=== PATIENT | female | born 1965 | race African-American/Black ===

== ENCOUNTER 2016-06-29 16:19 | Emergency (ER) | payer OTHER ==
[~2016-06-29] VITALS: Ht 154.9 cm; Wt 87.1 kg
[~2016-06-29 16:19] MED LIST: HYDR-971 PO; IBUP-1060 PO; METH4TAB2 PO
--- NOTE | 2016-06-29 17:34 | RAD ---
Three-view right hand study History: Jammed hand in a door. Pain in third digit. Findings: No acute fracture or dislocation or osteolytic process is seen. Degenerative spurring of the third DIP joint is seen. 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 IMPRESSION: No acute fracture.
[2016-06-29 18:09] VITALS: BP 152/109
[2016-06-29] MEDS ORDERED: ACET-704 PO (18:25)
--- NOTE | 2016-06-29 18:25 | PHYS DOC ---
Past Medical History Past Medical History: GERD, Hypertension Past Surgical History: Tubal ligation Alcohol Use: Rarely Drug Use: Marijuana Adult General Chief Complaint Chief Complaint: HAND PROBLEM HPI HPI Patient is a 50 year old female with history of hypertension and acid reflux who presents with right middle finger pain after her middle finger was jammed in between 2 chairs. Review of Systems Review of Systems Constitutional: Denies fever or chills [] Musculoskeletal: Right middle finger pain Integument: Denies rash or skin lesions [] Neurologic: Denies headache, focal weakness or sensory changes [] Endocrine: Denies polyuria or polydipsia [] Current Medications Current Medications Current Medications Medications (Trade) Dose Ordered Sig/Laura Start Time Stop Time Status Last Admin Dose Admin Acetaminophen/ Hydrocodone Bitart (Lortab 5/325) 1 tab 1X ONCE 06/29/16 18:30 06/29/16 18:31 UNV Diphtheria/ Tetanus/Acell Pertussis (Boostrix) 0.5 ml ONCE ONCE 06/29/16 18:30 06/29/16 18:31 UNV Allergies Allergies Allergies Coded Allergies Type Severity Reaction Last Updated Verified No Known Drug Allergies 08/30/15 No Physical Exam Physical Exam Constitutional: Well developed, well nourished, no acute distress, non-toxic appearance. [] Skin: Warm, dry, no erythema, no rash. [] Back: No tenderness, no CVA tenderness. [] Extremities: Right middle finger with bruising noted on the distal end of the finger dorsal aspect, tenderness on palpation of the right middle finger distal end. Limited range of motion to the right middle finger due to pain. Adequate flexion and extension of the right middle finger at the MIP PIP and DIP joints. Adequate ulnar, medial, radial sensation to the right fingers. +2 right radial pulse. Cap refill less than 2 seconds the right upper extremity. Neurologic: Alert and oriented X 3, normal motor function, normal sensory function, no focal deficits noted. [] Psychologic: Affect normal, judgement normal, mood normal. [] Current Patient Data Vital Signs Vital Signs Date Time Temp Pulse Resp B/P Pulse Ox O2 Delivery O2 Flow Rate FiO2 06/29/16 18:09 98.4 72 18 100 Room Air 98.4 EKG EKG [] Radiology/Procedures Radiology/Procedures [] Course & Med Decision Making Course & Med Decision Making Pertinent Labs and Imaging studies reviewed. (See chart for details) Patient is in the ED with right middle finger contusion after it was caught in between 2 chairs. Right hand x-ray interpreted by radiologist as negative for any acute findings. Right middle finger was placed in a finger splint by the Ed RN. Neurovascular exam done by me is normal. Cap refill less than 2 seconds. Ice elevation encouraged. Discharged with Tylenol 3. Follow-up with Ortho in one week. Dragon Disclaimer Dragon Disclaimer This electronic medical record was generated, in whole or in part, using a voice recognition dictation system. Departure Departure Impression: Primary Impression: Contusion of finger, right Disposition: HOME, SELF-CARE Condition: STABLE Referrals: TARAH PALENCIA MD (PCP) WINDY SILVA MD see him in one week if pain continues Patient Instructions: Contusion Additional Instructions: You were seen for right middle finger contusion. Your x-rays are normal. Ice and elevate the extremity. You can apply Neosporin to the bruised laceration area. Keep it clean and dry. Wear the splint as needed. Follow-up with the provided orthopedic doctor or your own doctor in a week if pain continues. Scripts Acetaminophen With Codeine (Tylenol With Codeine #3 Tablet)1 Each Tablet1 Tab PO PRN Q4HRS PRN PAIN #20 TAB Prov:SUDHIR HURTADO APRN 06/29/16 Problem Qualifiers Primary Impression: Contusion of finger, right Encounter type: initial encounter Finger: middle finger Damage to nail status: without damage Qualified Code: S60.031A - Contusion of right middle finger without damage to nail, initial encounter SUDHIR HURTADO APRN Jun 29, 2016 18:25
[2016-06-29] MEDS ORDERED: DIPHTH,PERTUSS(ACELL),TET TOX 0.5 ML DISP.SYRIN. VAX IM ONE (18:30)
[2016-06-29] MEDS ORDERED: HYDROCODONE/APAP 5/325MG TABLET. PO ONE (18:30)
== END 2016-06-29 18:48 | disposition home or self-care (01) ==
LOC: ER 16:19
DX: S60.031A Contusion of right middle finger without damage to nail, initial encounter (principal); I10 Essential (primary) hypertension; F12.10 Cannabis abuse, uncomplicated; W23.1XXA Caught, crushed, jammed, or pinched between stationary objects, initial encounter; Y93.89 Activity, other specified; Y99.8 Other external cause status; Y92.89 Other specified places as the place of occurrence of the external cause
CPT/HCPCS: 29130; 73130; 90471; 90715; 99284-25

== ENCOUNTER → 2016-10-14 | Outpatient (CLI) | payer OTHER ==
[~2016-10-14] MED LIST changes: +ACET-704 PO
--- NOTE | 2016-10-14 16:08 | RAD ---
LOWER EXT JOINT WO LT dated 10/14/2016 3:30 PM Indication: LEFT ANTERIOMEDIAL KNEE PAIN POST FALL 3 WEEKS AGO, NO SX HX, NO PRIORS Comparison: No comparison is available. Technique: Routine multiplanar multisequence imaging performed. No contrast administered. Findings: Moderate tricompartmental hypertrophic change with prominent marginal osteophytes. Thinning and surface irregularity of the articular cartilage throughout. Full-thickness cartilage loss at the trochlear groove and medial and lateral femoral trochlea and lateral patellar facet. Near full-thickness cartilage loss at the weightbearing surface medial femoral condyle and medial tibial plateau. Small joint effusion. Small loose body at the posterior joint space measures 5 mm in size. No significant popliteal cyst. Anterior cruciate and posterior cruciate ligaments are intact. Medial and lateral collateral complexes are intact. Iliotibial band, popliteus tendon and pes anserine complex within normal limits. Quadriceps and patellar tendon are intact. There is mild increased signal within the substance of the distal patellar tendon. No abnormality of the medial and lateral retinaculum. Mild lateral patellar subluxation with tibial tubercle to the trochlear groove distance estimated at about 12 mm. Free edge blunting of the medial meniscal body. Anterior and posterior horn and intact. The lateral meniscus is grossly normal in morphology and signal. No articular surface tear. IMPRESSION: 1. Moderate tricompartmental degenerative arthrosis and chondromalacia. There is full-thickness cartilage loss of the anterior compartment. 2. Free edge degenerative tear medial meniscal body. 3. Moderate size joint effusion with suspected small loose bodies posterior joint space. 4. Mild lateral patellar subluxation and mild patellar tendinosis. Electronically signed by: Brad Lin MD (10/14/2016 4:05 PM)
== END | disposition home or self-care (01) ==
LOC: MRI 15:02
PROVIDERS: ATTEND Nurse Practitioner Gerontology
DX: S83.003A Unspecified subluxation of unspecified patella, initial encounter (principal); M94.262 Chondromalacia, left knee; M17.12 Unilateral primary osteoarthritis, left knee; X58.XXXA Exposure to other specified factors, initial encounter; Y93.89 Activity, other specified; Y92.89 Other specified places as the place of occurrence of the external cause; Y99.8 Other external cause status
CPT/HCPCS: 73721

== ENCOUNTER → 2017-07-04 | Outpatient (CLI) | payer OTHER ==
[2017-07-04 14:42] LABS: ALBUMIN 3.7 g/dL (3.4-5.0); ALBUMIN/GLOBULIN RATIO 0.9 (1.0-1.7); ALK PHOS 80 U/L (46-116); ALT (SGPT) 28 U/L (14-59); ANION GAP 10 (6-14); AST (SGOT) 23 U/L (15-37); BLOOD UREA NITROGEN 9 mg/dL (7-20); BUN/CREATININE RATIO 13 (6-20); CALCIUM 9.4 mg/dL (8.5-10.1); CARBON DIOXIDE 26 mmol/L (21-32); CHLORIDE 102 mmol/L (98-107); CHOLESTEROL 204 mg/dL (0-200); CREATININE 0.7 mg/dL (0.6-1.0); GFR 106.7; GLUCOSE 91 mg/dL (70-99); HDLC 64 mg/dL (40-60); LDLC 119 mg/dL (0-100); NON-HDL CHOLESTEROL 140 mg/dL (0-129); POTASSIUM 3.5 mmol/L (3.5-5.1); SODIUM 138 mmol/L (136-145); TOTAL BILIRUBIN 0.4 mg/dL (0.2-1.0); TOTAL PROTEIN 7.6 g/dL (6.4-8.2); TRIGLYCERIDES 103 mg/dL (0-150); VLDLC 21 mg/dL (0-40)
[2017-07-04 14:43] LABS: CHOLESTEROL/HDL RATIO 3.2
[2017-07-05 02:17] LABS: HEMOGLOBIN A1C 5.5 % (4.8-5.6)
== END | disposition home or self-care (01) ==
LOC: LAB 13:44
DX: I10 Essential (primary) hypertension (principal); E78.2 Mixed hyperlipidemia; R07.1 Chest pain on breathing
CPT/HCPCS: 36415; 80053; 80061; 83036; 83700; 86141

== ENCOUNTER 2019-01-18 08:39 | Emergency (ER) | payer MEDICAID, OTHER ==
[~2019-01-18] VITALS: Ht 170.2 cm; Wt 90.7 kg
[~2019-01-18 08:39] MED LIST changes: +HYDR-3164 PO; -HYDR-971 PO
[2019-01-18 09:03] VITALS: BP 183/101
--- NOTE | 2019-01-18 09:29 | PHYS DOC ---
Past Medical History Past Medical History: GERD, Hypertension Past Surgical History: Tubal ligation Alcohol Use: Rarely Drug Use: Marijuana Adult General Chief Complaint Chief Complaint: COUGH HPI HPI Patient is a 53 year old female that presents with a cough has been ongoing since Monday, and congestion. The patient's been having similar symptoms. Rates her pain as 10 out of 10 and states it hurts when she coughs. Review of Systems Review of Systems Constitutional: Denies fever or chills [] Eyes: Denies change in visual acuity, redness, or eye pain [] HENT: Reports nasal congestion and sore throat [] Respiratory: Reports cough and shortness of breath [] Cardiovascular: No additional information not addressed in HPI [] GI: Denies abdominal pain, nausea, vomiting, bloody stools or diarrhea [] : Denies dysuria or hematuria [] Musculoskeletal: Denies back pain or joint pain [] Integument: Denies rash or skin lesions [] Neurologic: Denies headache, focal weakness or sensory changes [] Endocrine: Denies polyuria or polydipsia [] Complete systems were reviewed and found to be within normal limits, except as documented in this note. Allergies Allergies Allergies Coded Allergies Type Severity Reaction Last Updated Verified No Known Drug Allergies 08/30/15 No Physical Exam Physical Exam Constitutional: Well developed, well nourished, no acute distress, non-toxic appearance. [] HENT: Normocephalic, atraumatic, bilateral external ears normal, oropharynx moist, no oral exudates, nose normal. [] Eyes: PERRLA, EOMI, conjunctiva normal, no discharge. [] Neck: Normal range of motion, no tenderness, supple, no stridor. [] Cardiovascular:Heart rate regular rhythm, no murmur [] Lungs & Thorax: Bilateral breath sounds clear to auscultation on right side, diminished in left lower lobe. Abdomen: Bowel sounds normal, soft, no tenderness, no masses, no pulsatile masses. [] Skin: Warm, dry, no erythema, no rash. [] Back: No tenderness, no CVA tenderness. [] Extremities: No tenderness, no cyanosis, no clubbing, ROM intact, no edema. [] Neurologic: Alert and oriented X 3, normal motor function, normal sensory function, no focal deficits noted. [] Psychologic: Affect normal, judgement normal, mood normal. [] Current Patient Data Vital Signs Vital Signs Date Time Temp Pulse Resp B/P (MAP) Pulse Ox O2 Delivery O2 Flow Rate FiO2 01/18/19 09:03 98.4 86 24 183/101 (128) 95 Room Air 98.4 Lab Values Laboratory Tests Test 01/18/19 09:47 White Blood Count 6.5 x10^3/uL (4.0-11.0) Red Blood Count 5.05 x10^6/uL (3.50-5.40) Hemoglobin 14.3 g/dL (12.0-15.5) Hematocrit 42.4 % (36.0-47.0) Mean Corpuscular Volume 84 fL (79-100) Mean Corpuscular Hemoglobin 28 pg (25-35) Mean Corpuscular Hemoglobin Concent 34 g/dL (31-37) Red Cell Distribution Width 14.8 % (11.5-14.5) H Platelet Count 230 x10^3/uL (140-400) Neutrophils (%) (Auto) 61 % (31-73) Lymphocytes (%) (Auto) 23 % (24-48) L Monocytes (%) (Auto) 9 % (0-9) Eosinophils (%) (Auto) 5 % (0-3) H Basophils (%) (Auto) 1 % (0-3) Neutrophils # (Auto) 4.0 x10^3/uL (1.8-7.7) Lymphocytes # (Auto) 1.5 x10^3/uL (1.0-4.8) Monocytes # (Auto) 0.6 x10^3/uL (0.0-1.1) Eosinophils # (Auto) 0.3 x10^3/uL (0.0-0.7) Basophils # (Auto) 0.1 x10^3/uL (0.0-0.2) Sodium Level 142 mmol/L (136-145) Potassium Level 3.6 mmol/L (3.5-5.1) Chloride Level 105 mmol/L (98-107) Carbon Dioxide Level 27 mmol/L (21-32) Anion Gap 10 (6-14) Blood Urea Nitrogen 10 mg/dL (7-20) Creatinine 1.0 mg/dL (0.6-1.0) Estimated GFR (Cockcroft-Gault) 70.2 BUN/Creatinine Ratio 10 (6-20) Glucose Level 101 mg/dL (70-99) H Calcium Level 9.7 mg/dL (8.5-10.1) Total Bilirubin 0.9 mg/dL (0.2-1.0) Aspartate Amino Transferase (AST) 17 U/L (15-37) Alanine Aminotransferase (ALT) 20 U/L (14-59) Alkaline Phosphatase 91 U/L (46-116) Total Protein 7.3 g/dL (6.4-8.2) Albumin 4.1 g/dL (3.4-5.0) Albumin/Globulin Ratio 1.3 (1.0-1.7) Laboratory Tests 01/18/19 09:47 Laboratory Tests 01/18/19 09:47 EKG EKG [] Radiology/Procedures Radiology/Procedures [][facility] [address] [place] [address] IMAGING REPORT Signed PATIENT: RHETT ROGERS ACCOUNT: [id number] : 1965 LOCATION: ER AGE: 53 SEX: F EXAM STATUS: REG ER ORD. PHYSICIAN: CAMI DOVER APRN REASON: shortness of breath PROCEDURE: CHEST PA & LATERAL CHEST PA LATERAL History: Shortness of breath. Comparison: None. Findings: No consolidation or pleural effusion. Normal heart size. Impression: 1. No acute cardiopulmonary process. Electronically signed by: Merly Tabares DO (01/18/2019 9:51 AM) [facility] DICTATED and SIGNED BY: MERLY TABARES DO DATE: 01/18/19 0951 Course & Med Decision Making Course & Med Decision Making Pertinent Labs and Imaging studies reviewed. (See chart for details) Will get chest x-ray and labs to rule out pneumonia. Labs are unremarkable. Will give Decadron. Dragon Disclaimer Dragon Disclaimer This electronic medical record was generated, in whole or in part, using a voice recognition dictation system. Departure Departure Impression: Primary Impression: Bronchitis Disposition: 01 HOME, SELF-CARE Condition: STABLE Referrals: NO PCP (PCP) Patient Instructions: Acute Bronchitis Additional Instructions: Thank you for visiting [facility]. We appreciate you trusting us with your care. If any additional problems come up don't hesitate to return to visit us. Please follow up with your primary care provider so they can plan additional care if needed and know about the problem that you had. If symptoms worsen come back to the Emergency Department. Any concerning symptoms that start such as chest pain, shortness of air, weakness or numbness on one side of the body, running high fevers or any other concerning symptoms return to the ER. Please drink plenty of fluids and take Mucinex and Zyrtec over the counter per label instructions. Scripts Benzonatate (TESSALON PERLE) 100 Mg Capsule 1 CAP PO TID PRN for COUGH, #30 CAP Prov: CAMI DOVER APRN 01/18/19 CAMI DOVER APRN Jan 18, 2019 09:29
--- NOTE | 2019-01-18 09:54 | RAD ---
CHEST PA LATERAL History: Shortness of breath. Comparison: None. Findings: No consolidation or pleural effusion. Normal heart size. Impression: 1. No acute cardiopulmonary process. Electronically signed by: Hawk Keys DO (01/18/2019 9:51 AM) [facility]
[2019-01-18 09:58] LABS: BASO # 0.1 x10^3/uL (0.0-0.2); BASO % 1 % (0-3); EOS # 0.3 x10^3/uL (0.0-0.7); EOS % 5 % (0-3); HEMATOCRIT 42.4 % (36.0-47.0); HEMOGLOBIN 14.3 g/dL (12.0-15.5); LYMPH # 1.5 x10^3/uL (1.0-4.8); LYMPH % 23 % (24-48); MEAN CORPUSCULAR HEMOGLOBIN 28 pg (25-35); MEAN CORPUSCULAR HGB CONC 34 g/dL (31-37); MEAN CORPUSCULAR VOLUME 84 fL (79-100); MONO # 0.6 x10^3/uL (0.0-1.1); MONO % 9 % (0-9); NEUT % 61 % (31-73); PLATELET COUNT 230 x10^3/uL (140-400); RED BLOOD COUNT 5.05 x10^6/uL (3.50-5.40); RED CELL DISTRIBUTION WIDTH 14.8 % (11.5-14.5); WHITE BLOOD COUNT 6.5 x10^3/uL (4.0-11.0)
[2019-01-18 10:09] LABS: CALCIUM 9.7 mg/dL (8.5-10.1); GFR 70.2; POTASSIUM 3.6 mmol/L (3.5-5.1)
[2019-01-18 10:16] LABS: ALBUMIN 4.1 g/dL (3.4-5.0); ALBUMIN/GLOBULIN RATIO 1.3 (1.0-1.7); TOTAL BILIRUBIN 0.9 mg/dL (0.2-1.0); TOTAL PROTEIN 7.3 g/dL (6.4-8.2)
[2019-01-18] MEDS ORDERED: BENZ100C PO (10:42)
[2019-01-18] MEDS ORDERED: DEXAMETHASONE 4 MG TABLET PO STA (10:45)
== END 2019-01-18 10:43 | disposition home or self-care (01) ==
LOC: ER 08:39
DX: J40 Bronchitis, not specified as acute or chronic (principal); K21.9 Gastro-esophageal reflux disease without esophagitis; I10 Essential (primary) hypertension; Z98.51 Tubal ligation status
CPT/HCPCS: 36415; 71046; 80053; 85025; 99285; J8540

== ENCOUNTER 2020-09-29 16:31 | Emergency (ER) | payer MEDICAID ==
[~2020-09-29] VITALS: Ht 154.9 cm; Wt 104.6 kg
[~2020-09-29 16:31] MED LIST changes: +BENZ100C PO
[2020-09-29 17:25] VITALS: BP 164/94
[2020-09-29] MEDS ORDERED: OLOP5DRO13 EACHEYE (18:45)
--- NOTE | 2020-09-29 18:46 | ED.ADGEN ---
Past Medical History Past Medical History: Hypertension Past Surgical History: No Surgical History Smoking Status: Current Every Day Smoker Alcohol Use: None Drug Use: Marijuana General Adult EDM: Chief Complaint: EYE PROBLEMS HPI: HPI: Patient is a 54 year old AA female who presents emergency department with complaints of right eyeball irritation and pain. Patient states that she recently finished some eyedrops after being diagnosed with pinkeye by her primary care doctor. She states that on September 262020 she was accidentally hit in the right eye with a ball. Patient denies any loss of consciousness, vision changes, blurry vision, dizziness, headache, or photosensitivity. She denies any nausea, vomiting, or cough. Patient currently denies having pain in her eye her only complaint is intense itching and that discomfort is a 10 out of 10 on the the discomfort scale. Review of Systems: Review of Systems: Complete ROS is negative unless otherwise noted in HPI. Allergies: Allergies: Allergies Coded Allergies Type Severity Reaction Last Updated Verified No Known Drug Allergies 08/30/15 No Physical Exam: PE: See Above Constitutional: Well developed, well nourished, no acute distress, non-toxic appearance. [] HENT: Normocephalic, atraumatic, bilateral external ears normal, nose normal. [] Eyes: PERRLA, EOMI, conjunctiva normal in left eye, no discharge; subconjunctival hemorrhage of the right eye is present; no decrease in visual acuities, peripheral is intact bilaterally. [] Neck: Normal range of motion, no stridor. [] Cardiovascular:Heart rate regular rhythm Lungs & Thorax: Respirations even and unlabored, no retractions, no respiratory distress Skin: Warm, dry, no erythema, no rash. [] Extremities: No cyanosis, ROM intact, no edema. [] Neurologic: Alert and oriented X 3, no focal deficits noted. [] Psychologic: Affect normal, judgement normal, mood normal. [] Current Patient Data: Vital Signs: Vital Signs Date Time Temp Pulse Resp B/P (MAP) Pulse Ox O2 Delivery O2 Flow Rate FiO2 09/29/20 17:25 98.1 83 16 164/94 (117) 96 Room Air 98.1 EKG: EKG: [] Heart Score: C/O Chest Pain: No Risk Scores: Score 0 - 3: 2.5% MACE over next 6 weeks - Discharge Home Score 4 - 6: 20.3% MACE over next 6 weeks - Admit for Clinical Observation Score 7 - 10: 72.7% MACE over next 6 weeks - Early Invasive Strategies Radiology/Procedures: Radiology/Procedures: [] Course & Med Decision Making: Course & Med Decision Making Pertinent Labs and Imaging studies reviewed. (See chart for details) 54-year-old 4-year-old female presents emergency department for evaluation of of continued irritation of the right eye. Physical exam reveals a subconjunctival hemorrhage in the right eye. The patient was also examined by Dr. Jean who is in agreement with this finding. Patient reported that both of her eyes have been itching. She has written prescriptions for Patanol eyedrops. Encourage patient to follow-up with her eye doctor or Dr. Gonzales in the next 1 to 2 days, return to the ER if symptoms worsen vision changes. Patient verbalized an understanding of home care, medications, follow-up, and return to ED instructions and was in agreement with the plan of care. [] Dragon Disclaimer: Dragon Disclaimer: This electronic medical record was generated, in whole or in part, using a voice recognition dictation system. Departure Departure Impression: Primary Impression: Subconjunctival hemorrhage of right eye Disposition: HOME / SELF CARE / HOMELESS Condition: STABLE Referrals: TARAH PALENCIA MD (PCP) ANN GONZALES MD Patient Instructions: Subconjunctival Hemorrhage-Brief Additional Instructions: Follow up with your optomologist or Dr. Gonzales for repeat eye exam in 1-2 days. Return to the ER if symptoms worsen or fever develops. Scripts Olopatadine HCl (Olopatadine HCl) 5 Ml Drops 1 DROP EACHEYE BID, #5 ML 0 Refills Prov: FATMATA JOINER EMR TRAINER 09/29/20 FATMATA JOINER EMR TRAINER September 29, 2020 18:46
== END 2020-09-29 18:54 | disposition home or self-care (01) ==
LOC: ER 16:31
DX: H11.31 Conjunctival hemorrhage, right eye (principal); I10 Essential (primary) hypertension; F17.200 Nicotine dependence, unspecified, uncomplicated
CPT/HCPCS: 99282